=== PATIENT | male | born 1965 | race Two or more races ===

== ENCOUNTER 2022-11-11 20:49 | Inpatient (IN) | payer MEDICAID ==
[~2022-11-11] VITALS: Ht 157.5 cm; Wt 73.6 kg
[~2022-11-11 20:49] MED LIST: NORPTMEDS CO
[2022-11-11 21:31] LABS: Basophils # (auto) 0 10 ^3/uL (0-0.2); Eosinophils # (auto) 0.1 10 ^3/uL (0-0.8); Hemoglobin 13.5 g/dL (13.5-17.5); Mean Corpuscular Hgb Conc. 32.9 g/dL (32.0-36.0); Neutrophils # (auto) 2.9 10 ^3/uL (1.6-8.6); Red Cell Distribution Width 13.6 % (11.8-14.3)
[2022-11-11 21:33] LABS: Basophils % (auto) 0.5 % (0.0-2.0); Eosinophils % (auto) 2.6 % (0.0-7.0); Hematocrit 41.1 % (41.0-53.0); Lymphocytes # (auto) 1.3 10 ^3/uL (0.4-5.4); Lymphocytes % (auto) 27.4 % (10.0-50.0); Mean Corpuscular Hemoglobin 26.4 pg (28.0-32.0); Mean Corpuscular Volume 80.1 fL (80.0-100.0); Monocytes # (auto) 0.5 10 ^3/uL (0-1.3); Monocytes % (auto) 9.4 % (0.0-12.0); Neutrophils % (auto) 60.1 % (37.0-80.0); Nucleated Red Blood Cells % 0.1 %; Red Blood Cells 5.13 10^6/uL (4.5-5.90); White Blood Cell 4.9 10^3/uL (4.4-10.8)
[2022-11-11 21:51] LABS: Albumin 3.1 g/dL (3.4-5.0); Calcium 8.8 mg/dL (8.5-10.1); Potassium 4.4 mmol/L (3.5-5.1)
[2022-11-11 21:53] LABS: Bilirubin, Total 0.3 mg/dL (0.2-1.0); Total Protein 7.2 g/dL (6.4-8.2)
[2022-11-11] MEDS ORDERED: SODIUM CHLORIDE 0.9% 1,000 ML IV ONE (22:15)
[2022-11-11] MEDS ORDERED: InsuLIN REG 1unit/0.01ml Soln (100units/ml) SC ONE (22:15)
[2022-11-11] MEDS ORDERED: InsuLIN REG 1unit/0.01ml Soln (100units/ml) IV ONE (23:00)
[2022-11-11 23:16] LABS: BUN/Creatinine Ratio 18.6
[2022-11-12] MEDS ORDERED: SODIUM CHLORIDE 0.9% 1,000 ML IV ONE (01:00)
[2022-11-12] MEDS ORDERED: ONDANSETRON HCL 4 MG/2 ML VIAL IV PRN (02:15)
[2022-11-12] MEDS ORDERED: TEMAZEPAM 15 MG CAP PO PRN (02:15)
[2022-11-12] MEDS ORDERED: DEXTROSE (50%) 50ML SYRG IV PRN (02:15)
[2022-11-12 02:42] LABS: Urine WBC None Seen /hpf (0 - 3)
[2022-11-12 02:46] LABS: Urine Bacteria NONE SEEN /hpf (None Seen); Urine Blood Negative /uL (Negative); Urine Specific Gravity 1.032 (1.001-1.035)
[2022-11-12] MEDS: ACCU-CHEK COMFORT CURVE STRIP VI SCH ×4 (04:29→20:34)
[2022-11-12] MEDS: InsuLIN REG 1unit/0.01ml Soln (100units/ml) SC SCH ×5 (04:32→20:39)
[2022-11-12] MEDS ORDERED: LISINOPRIL 10 MG TAB PO ONE (06:15)
[2022-11-12 12:28] LABS: BUN/Creatinine Ratio 31.3; Potassium 4.3 mmol/L (3.5-5.1)
[2022-11-12] MEDS: PANTOPRAZOLE 40 MG TAB PO SCH (13:29)
[2022-11-12] MEDS ORDERED: BLOO1KIT60 XX (15:26)
[2022-11-12] MEDS ORDERED: METF-370 PO (15:26)
[2022-11-12] MEDS: metFORMIN HYDROCHLORIDE 850 MG TAB PO SCH (19:36)
[2022-11-12] MEDS: SODIUM CHLORIDE 0.9% 1,000 ML IV SCH (19:36)
[2022-11-12 22:00] VITALS: BP 135/82
[2022-11-13] MEDS: ACCU-CHEK COMFORT CURVE STRIP VI SCH ×4 (00:17→12:00)
[2022-11-13] MEDS: InsuLIN REG 1unit/0.01ml Soln (100units/ml) SC SCH ×4 (00:23→12:42)
[2022-11-13] MEDS: SODIUM CHLORIDE 0.9% 1,000 ML IV SCH ×2 (01:58→11:30)
[2022-11-13 05:00] VITALS: BP 121/68
[2022-11-13 05:46] LABS: Calcium 8.4 mg/dL (8.5-10.1); Potassium 3.3 mmol/L (3.5-5.1)
[2022-11-13 08:00] VITALS: BP 155/92
[2022-11-13] MEDS: metFORMIN HYDROCHLORIDE 850 MG TAB PO SCH (08:54)
[2022-11-13 09:03] VITALS: BP 127/76
[2022-11-13] MEDS ORDERED: POTASSIUM EFFERVESENT TAB 25 MEQ PO ONE (09:30)
[2022-11-13] MEDS ORDERED: LISINOPRIL 10 MG TAB PO SCH (10:00)
[2022-11-13] MEDS: PANTOPRAZOLE 40 MG TAB PO SCH (10:02)
[2022-11-13 13:01] VITALS: BP 145/88
[2022-11-13 13:40] VITALS: BP 127/76
== END 2022-11-13 16:23 | disposition home or self-care (01) | DRG 420 ==
LOC: ER 20:52 → OVERFLOW 11-12 02:10 → CENTRAL 11-12 20:02
PROVIDERS: ADMIT Nurse Practitioner; ATTEND Nurse Practitioner Acute Care
DX: E11.65 Type 2 diabetes mellitus with hyperglycemia (principal); E44.0 Moderate protein-calorie malnutrition; N17.9 Acute kidney failure, unspecified; E66.9 Obesity, unspecified; E86.0 Dehydration; I10 Essential (primary) hypertension; Z68.29 Body mass index [BMI] 29.0-29.9, adult; Z20.822 Contact with and (suspected) exposure to COVID-19
CPT/HCPCS: 36415; 36600; 80048; 80053; 81001; 82805; 82962; 83036; 83690; 83880; 84484; 85025; 87426; 96361; 96374; G0378; J1815

== ENCOUNTER 2023-10-22 20:37 | Emergency (ER) | payer MEDICAID ==
[~2023-10-22] VITALS: Ht 157.5 cm; Wt 75.0 kg
[~2023-10-22 20:37] MED LIST changes: +BLOO1KIT60 XX; +METF-370 PO
[2023-10-22 21:09] VITALS: BP 155/83; PULSE 79; RESP 20; O2SAT 98
[2023-10-22] MEDS: KETOROLAC TROMETH 60MG/2ML VIAL IM ONE (23:59)
== END 2023-10-23 00:40 | disposition home or self-care (01) ==
LOC: ER 20:37
DX: R51.9 Headache, unspecified (principal); I10 Essential (primary) hypertension; E11.9 Type 2 diabetes mellitus without complications; E78.5 Hyperlipidemia, unspecified; Z79.899 Other long term (current) drug therapy
CPT/HCPCS: 70450; 96372; 99285; J1885

== ENCOUNTER 2025-02-21 11:01 | Inpatient (IN) | payer MEDICAID, SELFPAY ==
[~2025-02-21] VITALS: Ht 157.5 cm; Wt 72.8 kg
--- NOTE | 2025-02-21 11:17 | ED.PDOC ---
HPI (NEURO) HPI Comments HPI: Poor Historian. 59-year-old male presents to emergency depart for evaluation of 45 minutes onset of dizziness while he was in the ladder with the associated right-sided weakness. Patient feels right facial right arm right leg weakness in addition to tingling as well. Denies any speech abnormality. Code stroke was activated immediately upon evaluation. Past Medical History: Diabetes Past Surgical History: Denies any Denies any use of drugs or alcohol or tobacco REVIEW OF SYSTEMS: CONSTITUTIONAL: Denies acute: fever, diaphoresis, chills, generalized weakness. HEAD: Denies acute: headache, photophobia Eyes: Denies acute: Double vision, vision loss, eye pain, eye discharge. EARS: Denies acute: tinnitus, hearing loss, ear discharge, ear pain, THROAT: Denies acute: sore throat, swelling, difficulty swallowing , pain with swallowing, change in voice. NECK: Denies acute: neck pain, neck swelling, stiff neck. HEART: Denies acute : chest pain, palpitations, LUNGS: Denies acute: SOB, wheezing, cough, hemoptysis ABDOMEN: Denies acute: abdominal pain, Nausea, Vomiting, diarrhea, melena , hematemesis, hematochezia SKIN: Denies acute: rash, redness, lesions, itchiness. EXTREMITIES: Denies acute: calf pain, denies pain in extremity. Denies acute: Low back pain. Neuro: Denies acute: focal neurological deficit, motor or sensory focal neurological deficit, tremors, seizure like activity, confusion, change in mental status, loss of bowel or bladder function, cauda equina like symptoms. : Denies acute: dysuria, hematuria, flank pain, increase in urinary frequency. PSYCH: Denies acute: hallucination, suicidal ideation, homicidal ideation. PHYSICAL EXAM: General: ----mild----acute distress, awake and alert. Head: normocephalic, atraumatic. Neck: supple, trachea is midline, no swelling. Throat: Normal phonation. Eyes:, no erythema, no purulent discharge, no proptosis, no icterus. Heart: regular rate, regular rhythm, no significant murmur appreciated. Lungs: no apparent respiratory distress, Able to speak in full sentences. No wheezing, no rhonchi, no crackles. No stridors Clear to auscultation bilaterally. Abdomen: non tender to palpation, non distended, soft, no guarding, no rebound, + bowel sounds. Neuro: Awake, Alert, oriented to name, self, situation, follows commands GCS=15. Speech is normal. Skin: no petechia, no purpura, no cyanosis, non-pale, not jaundice. Lower extremities: --no - Pitting edema no deformity, no focal swelling, no calf TTP. Makes eye contact. moves all four extremities. Face: no apparent facial droop. Ambulating in the ED independently. Stroke: finger to nose cerebellar testing is intact. No pronator drift. Symmetrical dry cleaning checker muscle strength b/l PERRLA, EOM-I CN 2-12 are grossly intact, No nystagmus. No nuchal rigidity, Kernig's sign, Brudzinski's sign, no meningeal signs. ED COURSE: DISCLAIMER: This medical document was created using an electronic medical record system with voice recognition software and computerized dictation system. Although this document has been carefully reviewed, there might still be some phonetic and typographical errors. Occasional wrong-word or "sound-alike" substitutions may have occurred due to the inherent limitations of voice recognition software. These areas are purely typographical due to imperfections of the software programs and do not reflect any compromise in the patient's medical care. Please read the chart carefully and recognize, using context, where these substitutions have occurred. Time Seen by MD: 11:12 Primary Care Provider: CHAUNCEY Information Source: Patient Past Medical History PAST MEDICAL HISTORY: DM, High Lipids, HTN Surgical History: Denies all surgeries Family History Family History: Reviewed,noncontributory to illness, Unknown Social History Smoker: Non-Smoker Alcohol: Denies ETOH Use Drugs: Denies Drug Use Lives In: Home X-Ray, Labs, Meds, VS Vital Signs Date Time Temp Pulse Resp B/P (MAP) Pulse Ox O2 Delivery O2 Flow Rate FiO2 02/21/25 11:45 84 21 93 Room Air* 0 21 02/21/25 11:45 84 21 141/74 (96) 93 02/21/25 11:22 98.6 102 16 161/100 (120) 96 98.6 Lab Test 02/21/25 11:21 02/21/25 11:14 Range/Units White Blood Count 4.7 4.4-10.8 10^3/uL Red Blood Count 5.19 4.5-5.90 10^6/uL Hemoglobin 13.5 13.5-17.5 g/dL Hematocrit 40.6 L 41.0-53.0 % Mean Corpuscular Volume 78.3 L 80.0-100.0 fL Mean Corpuscular Hemoglobin 25.9 L 28.0-32.0 pg Mean Corpuscular Hemoglobin Concent 33.1 32.0-36.0 g/dL Red Cell Distribution Width 14.6 H 11.8-14.3 % Platelet Count 263 140-450 10^3/uL Mean Platelet Volume 6.7 L 6.9-10.8 fL Neutrophils (%) (Auto) 64.1 37.0-80.0 % Lymphocytes (%) (Auto) 25.5 10.0-50.0 % Monocytes (%) (Auto) 8.4 0.0-12.0 % Eosinophils (%) (Auto) 1.7 0.0-7.0 % Basophils (%) (Auto) 0.3 0.0-2.0 % Neutrophils # (Auto) 3.0 1.6-8.6 10 ^3/uL Lymphocytes # (Auto) 1.2 0.4-5.4 10 ^3/uL Monocytes # (Auto) 0.4 0-1.3 10 ^3/uL Eosinophils # (Auto) 0.1 0-0.8 10 ^3/uL Basophils # (Auto) 0 0-0.2 10 ^3/uL Nucleated Red Blood Cells 0.0 % Prothrombin Time 10.3 9.3-11.8 sec Prothrombin Time INR 0.97 0.9-1.15 Activated Partial Thromboplast Time 26.3 24.5-34.5 SEC Sodium Level 144 136-145 mmol/L Potassium Level 4.2 3.5-5.1 mmol/L Chloride Level 109 H 98-107 mmol/L Carbon Dioxide Level 25 20-31 mmol/L Anion Gap 10 5-15 Blood Urea Nitrogen 20 9-23 mg/dL Creatinine 0.90 0.700-1.30 mg/dL Glomerular Filtration Rate Calc 99 >90 mL/min BUN/Creatinine Ratio 22.2 H 10.0-20.0 Serum Glucose 181 H 74-106 mg/dL Calcium Level 10.1 8.7-10.4 mg/dL Magnesium Level 2.1 1.6-2.6 mg/dL Total Bilirubin 0.5 0.2-1.0 mg/dL Aspartate Amino Transferase (AST) 18 <34 U/L Alanine Aminotransferase (ALT) 23 7-40 U/L Alkaline Phosphatase 69 46-116 U/L Troponin I High Sensitivity < 3 L </=54 ng/L B-Type Natriuretic Peptide 85.55 0-100 pg/mL Total Protein 7.4 5.7-8.2 g/dL Albumin 4.6 3.2-4.8 g/dL POC Glucose 174 H 70-106 mg/dl Current Medications Medications (Trade) Dose Ordered Sig/Molina Route Start Time Stop Time Status Last Admin Clopidogrel Bisulfate (Plavix) 300 mg ONCE ONCE PO 02/21/25 11:45 02/21/25 11:47 DC 02/21/25 12:09 Aspirin 81 mg ONCE ONCE PO 02/21/25 11:45 02/21/25 11:47 DC 02/21/25 12:09 [place] [address] Ph: [phone] DIAGNOSTIC IMAGING Diagnostic Imaging Report : [id number] Signed PATIENT: JO CALDERA ACCT: [id number] UNIT: [id number] : 1965 LOC: ER ROOM / BED: / AGE / SEX: 59 / M ADM STATUS: REG ER SERVICE 1113 ORDERING PHYSICIAN: ELBERT ALCAZAR DO PROCEDURE(s): [place] - ANGIO HEAD/Neck REASON: right sided weakness ORDER NUMBER(s): [id number], ACCESSION NUMBER(s): [id number] Procedure: CT ANGIO HEAD/Neck HISTORY: Right sided weakness Comparison Study: CT scan of the head performed same date. Exam Date:02/21/2025 11:21 AM TECHNIQUE: CTA head without and with intravenous contrast. CTA neck with intravenous contrast. 3D image postprocessing was performed and images were used for interpretation and reporting. Radiation Dose : CT Dose: CTDI volume is 22.41 mGy. Dose-length product is 849.71 mGy*cm FINDINGS: CTA head: There is normal enhancement of the visualized distal internal carotid, anterior and middle cerebral arteries. There is a normal anterior communicating artery complex. There are bilateral posterior communicating arteries. The vertebral, basilar, cerebellar and posterior cerebral arteries are within normal limits. The early parenchymal enhancement is grossly unremarkable. The visualized intracranial venous structures are grossly unremarkable. CTA neck: The visualized thoracic aortic arch and proximal great vessels are unremarkable. The left common, internal and external carotid arteries are within normal limits. The right common, internal and external carotid arteries are within normal limits. The cervical segments of the right and left vertebral arteries are within normal limits. 1.5 cm cavitary nodule in the right upper lobe. The surrounding soft tissues and osseous structures are otherwise unremarkable. IMPRESSION: 1. No evidence of hemodynamically significant intracranial stenosis, proximal o cclusion or aneurysm. 2. No evidence of hemodynamically significant cervical stenosis or dissection. 3. 1.5 cm cavitary pulmonary nodule in the right upper lobe. Dedicated chest CT is recommended for further evaluation. CAROTID STENOSIS REFERENCE Distal internal carotid artery diameter as the denominator for stenosis measurement: MILD = <50% stenosis. MODERATE = 50-69% stenosis. SEVERE = 70-89% stenosis. CRITICAL = 90-99% stenosis. OCCLUDED = 100% stenosis. All CT scans at this medical facility are performed using dose modulation techniques as appropriate to a performed exam including the following: Automated exposure control was utilized; adjustment of the MA and/or KV according to patient size; and use of iterative reconstruction technique. ATED BY: SHERINE GROSSMAN MD DICTATED DATE/TIME: 02/21/251200 SIGNED BY: SHERINE GROSSMAN MD SIGNED DATE/TIME: 02/21/251200 CC: [place] [address] Ph: [phone] DIAGNOSTIC IMAGING Diagnostic Imaging Report : [id number] Signed PATIENT: JO CALDERA ACCT: [id number] UNIT: [id number] : 1965 LOC: ER ROOM / BED: / AGE / SEX: 59 / M ADM STATUS: REG ER SERVICE 1113 ORDERING PHYSICIAN: ELBERT ALCAZAR DO PROCEDURE(s): CTH - STROKE CTH REASON: right sided weakness ORDER NUMBER(s): [id number], ACCESSION NUMBER(s): [id number] EXAM: CT STROKE CTH INDICATION: Right sided weakness TECHNIQUE: CT of the head without intravenous contrast. Coronal and sagittal reformatted images are submitted. Radiation Dose : 1. Head: CT Dose: CTDI volume is 53.38 mGy. Dose-length product is 855.83 mGy*cm The dose indicators for CT are the volume Computed Tomography (CT) Dose Index (CTDIvol) and the Dose Length Product (DLP), and are measured in units of mGy and mGy-cm, respectively. These indicators are not patient dose, but values generated from the CT scanner acquisition factors. The report includes radiation exposure data for exposures received during this examination. All CT scans at this medical facility are performed using dose modulation techniques as appropriate to a performed exam including the following: Automated exposure control was utilized; adjustment of the MA and/or KV according to patient size; and use of iterative reconstruction technique. COMPARISON: 10/22/2023 FINDINGS: There is no evidence of acute intracranial hemorrhage, extra-axial collection, mass effect, midline shift, herniation or hydrocephalus. The ventricles, sulci and cisterns are age appropriate. The march-white differentiation is intact. The visualized paranasal sinuses and mastoid air cells are clear. No depressed calvarial fracture. The surrounding soft tissues are unremarkable. IMPRESSION: 1. No evidence of acute intracranial abnormality. ATED BY: SHERINE GROSSMAN MD DICTATED DATE/TIME: 02/21/251154 SIGNED BY: SHERINE GROSSMAN MD SIGNED DATE/TIME: 02/21/251154 CC: [place] [address] Ph: [phone] DIAGNOSTIC IMAGING Diagnostic Imaging Report : [id number] Signed PATIENT: JO CALDERA ACCT: [id number] UNIT: [id number] : 1965 LOC: ER ROOM / BED: / AGE / SEX: 59 / M ADM STATUS: REG ER SERVICE 1113 ORDERING PHYSICIAN: ELBERT ALCAZAR DO PROCEDURE(s): CXR1 - CHEST XRAY 1 VIEW REASON: right sided weakness ORDER NUMBER(s): [id number], ACCESSION NUMBER(s): [id number] CHEST RADIOGRAPH Indication: right sided weakness Technique: Single frontal view of the chest was obtained COMPARISON: XY CHEST XRAY 1 VIEW on DOS: 11/11/22 FINDINGS: Lines and Tubes: None Lungs: Clear Pleura: No effusion. No pneumothorax. Cardiomediastinal contours: Unremarkable Bones: Unremarkable IMPRESSION: No acute disease. ATED BY: KURT MOODY MD DICTATED DATE/TIME: 02/21/25 1208 SIGNED BY: KURT MOODY MD SIGNED DATE/TIME: 02/21/25 1208 CC: Time of 1ST Reevaluation: 12:03 (Earlier case was discussed with the neurologist on-call Dr. choi. He evaluated the patient in the camera. He recommends TIA workup. He said that the patient's symptoms have completely resolved. He recommended aspirin 81 and Plavix 300 mg. Radiologist also called me and said the findings are all negative and everything is patent.) Reevaluation 1ST: Improved Patient Education/Counseling: Diagnosis, Treatment Family Education/Counseling: No Family Present Departure 1 Departure Time of Disposition: 11:28 Impression: Primary Impression: Right sided weakness Additional Impression: TIA (transient ischemic attack) Disposition: ADMITTED INPATIENT Admit to: Tele Condition: Guarded Discharged With: Self I personally scribed for ELBERT ALCAZAR DO ([email or web address]) on 02/21/25 at 12:19. Electronically submitted by Black Rodriguez ([email or web address]). ELBERT ALCAZAR DO Feb 21, 2025 11:17
[2025-02-21 11:44] LABS: Eosinophils # (auto) 0.1 10 ^3/uL (0-0.8); Lymphocytes # (auto) 1.2 10 ^3/uL (0.4-5.4); Monocytes # (auto) 0.4 10 ^3/uL (0-1.3)
[2025-02-21 11:45] VITALS: PULSE 84; RESP 21; O2SAT 93
[2025-02-21 11:46] LABS: Basophils # (auto) 0 10 ^3/uL (0-0.2); Basophils % (auto) 0.3 % (0.0-2.0); Eosinophils % (auto) 1.7 % (0.0-7.0); Hematocrit 40.6 % (41.0-53.0); Hemoglobin 13.5 g/dL (13.5-17.5); Lymphocytes % (auto) 25.5 % (10.0-50.0); Mean Corpuscular Hemoglobin 25.9 pg (28.0-32.0); Mean Corpuscular Hgb Conc. 33.1 g/dL (32.0-36.0); Mean Corpuscular Volume 78.3 fL (80.0-100.0); Monocytes % (auto) 8.4 % (0.0-12.0); Neutrophils % (auto) 64.1 % (37.0-80.0); Platelet Count (auto) 263 10^3/uL (140-450); Red Blood Cells 5.19 10^6/uL (4.5-5.90); Red Cell Distribution Width 14.6 % (11.8-14.3); White Blood Cell 4.7 10^3/uL (4.4-10.8)
[2025-02-21] MEDS: IOHEXOL 350 MG/ML 100ML IJ ONE (11:46)
--- NOTE | 2025-02-21 11:52 | BSKYNEURO ---
[facility] [facility] Note # Demographics Consult Type: Acute Stroke Level 1 (0-4.5 hrs) Patient Location: Emergency Room First Name: JO Last Name: CALDERA Date of : 1965 Age: 59 Gender: Male Facility: [facility] Time of Initial Page (): 02/21/2025 11:19 Time of Return Call (): 02/21/2025 11:19 # HPI Chief Complaint: - weakness (focal) - numbness History: 59-year-old male with a history of diabetes who presents with right-sided weakness, numbness, and tingling that began approximately 45 minutes prior to arrival at the emergency department. Interview completed with help of Language Line game author The patient reports that he was working on a ladder when he began to feel dizzy. He subsequently went down from the ladder and noticed weakness on his right side, affecting both his arm and leg. In addition to the weakness, he experienced numbness and tingling sensations. The patient also mentions feeling "off" while walking. The onset of symptoms was sudden, occurring around 10:30 AM on the day of presentation. Symptoms lasted for 30 minutes. Last Known Normal: - 10:30 AM Duration: - resolved # Scores Time of exam and NIHSS (): 02/21/2025 11:32 Level of Consciousness 1a: [0] = Alert; keenly responsive LOC Questions 1b: [0] = Answers both questions correctly LOC Commands 1c: [0] = Performs both tasks correctly Best Gaze 2: [0] = Normal Visual 3: [0] = No visual loss Facial Palsy 4: [0] = Normal symmetrical movements Motor Arm Left 5a: [0] = No drift Motor Arm Right 5b: [0] = No drift Motor Leg Left 6a: [0] = No drift Motor Leg Right 6b: [0] = No drift Limb Ataxia 7: [0] = Absent Sensory 8: [0] = Normal Best Language 9: [0] = No aphasia Dysarthria 10: [0] = Normal Extinction and Inattention 11: [0] = No abnormality NIHSS Total: 0 ABCD2 Score for TIA: [0] = Age >/= 60 years: No [1] = BP >/= 140/90: Yes [2] = Clinical features of the TIA: unilateral weakness [1] = Duration of symptoms: 10-59 minutes [1] = History of diabetes: Yes ABCD2 Total: 5 # ROS Additional: - complete review of systems otherwise negative # PMH-FH-SH Past Medical History: - hypertension - Diabetes # Data Time Head CT personally read by me (Pearce Time): 02/21/2025 11:[address]: - per radiologist read - no bleed CTA Head: - no large vessel occlusion - preliminarily reviewed by me, please refer to radiology read for official reading # Assessment Impression: - Transient Ischemic Attack - ABCD2 score: - Per AHA/ASA guidelines, patients with minor ischemic stroke NIHSS of 3 or less may benefit from 21 days of dual antiplatelet (based on POINT and CHANCE trials) # Plan Thrombolytic/Intervention: NOT IV Thrombolysis or IA Intervention candidate Thrombolytic Exclusion (< 3 hour window): - NIHSS = 0 Intraarterial Exclusion: - no large vessel occlusion (LVO) Target Blood Pressure: - SBP < 220 - DBP < 120 Labs: - hemoglobin A1c - lipid panel - urine drug screen - ua Imaging: (urgency: routine): - MRI Brain without contrast Diagnostic Test: - echo with bubble study Therapy/Evaluation: - Therapy not needed since patient is back to baseline Medication: - Recommend loading with Plavix 300 mg PO x 1 and ASA 81 mg PO x 1 now. Then Day 2 to 21, recommend Plavix 75 and ASA 81 mg daily. Then thereafter, can do ASA 81 mg daily or Plavix 75 mg daily. DVT Prophylaxis: - chemical DVT prophylaxis - SCD Other: - If patient has any neurological deterioration please call me back immediately - permissive hypertension - I have discussed my recommendations with the referring provider - telemetry monitoring - neurology referral as outpatient - will need event monitor or loop recorder as outpatient if atrial fibrillation not found as inpatient Disposition: admit # Demographics First Name: JO Last Name: [facility] Facility: [facility] Yes JOHAN NAGY MD Feb 21, 2025 11:52
--- NOTE | 2025-02-21 11:58 | DVH ---
EXAM: CT STROKE CTH INDICATION: Right sided weakness TECHNIQUE: CT of the head without intravenous contrast. Coronal and sagittal reformatted images are s ubmitted. Radiation Dose : 1. Head: CT Dose: CTDI volume is 53.38 mGy. Dose-length product is 855.83 mGy*cm The dose indicators for CT are the volume Computed Tomography (CT) Dose Index (CTDIvol) and the Dose Length Product (DLP), and are measured in units of mGy and mGy-cm, respectively. These indicators are not patient dose, but values generated from the CT scanner acquisition factors. The report includes radiation exposure data for exposures received during this examination. All CT scans at this medical facility are performed using dose modulation techniques as appropriate to a performed exam including the following: Automated exposure control was utilized; adjustment of the MA and/or KV according to patient size; and use of iterative reconstruction technique. COMPARISON: 10/22/2023 FINDINGS: There is no evidence of acute intracranial hemorrhage, extra-axial collection, mass effect, midline s hift, herniation or hydrocephalus. The ventricles, sulci and cisterns are age appropriate. The march-white differentiation is intact. The visualized paranasal sinuses and mastoid air cells are clear. No depressed calvarial fracture. The surrounding soft tissues are unremarkable. IMPRESSION: 1. No evidence of acute intracranial abnormality.
[2025-02-21 11:59] LABS: INR 0.97 (0.9-1.15); Partial Thromboplastin Time 26.3 SEC (24.5-34.5); Prothrombin Time 10.3 sec (9.3-11.8)
[2025-02-21 12:02] LABS: Alanine Aminotransferase 23 U/L (7-40); Albumin 4.6 g/dL (3.2-4.8); Alkaline Phosphatase 69 U/L (46-116); Anion Gap 10 (5-15); Aspartate Aminotransferase 18 U/L (<34); BUN/Creatinine Ratio 22.2 (10.0-20.0); Bilirubin, Total 0.5 mg/dL (0.2-1.0); Blood Urea Nitrogen 20 mg/dL (9-23); Calcium 10.1 mg/dL (8.7-10.4); Carbon Dioxide 25 mmol/L (20-31); Chloride 109 mmol/L (98-107); Glucose 181 mg/dL (74-106); Potassium 4.2 mmol/L (3.5-5.1); Sodium 144 mmol/L (136-145); Total Protein 7.4 g/dL (5.7-8.2)
--- NOTE | 2025-02-21 12:03 | DVH ---
Procedure: CT ANGIO HEAD/Neck HISTORY: Right sided weakness Comparison Study: CT scan of the head performed same date. Exam Date:02/21/2025 11:21 AM TECHNIQUE: CTA head without and with intravenous contrast. CTA neck with intravenous contrast. 3D [place] Frodio postprocessing was performed and images were used for interpretation and reporting. Radiation Dose : CT Dose: CTDI volume is 22.41 mGy. Dose-length product is 849.71 mGy*cm FINDINGS: CTA head: There is normal enhancement of the visualized distal internal carotid, anterior and middle cerebral a rteries. There is a normal anterior communicating artery complex. There are bilateral posterior commu nicating arteries. The vertebral, basilar, cerebellar and posterior cerebral arteries are within norm al limits. The early parenchymal enhancement is grossly unremarkable. The visualized intracranial bacilio ous structures are grossly unremarkable. CTA neck: The visualized thoracic aortic arch and proximal great vessels are unremarkable. The left common, int ernal and external carotid arteries are within normal limits. The right common, internal and external carotid arteries are within normal limits. The cervical segments of the right and left vertebral art eries are within normal limits. 1.5 cm cavitary nodule in the right upper lobe. The surrounding soft tissues and osseous structures are otherwise unremarkable. IMPRESSION: 1. No evidence of hemodynamically significant intracranial stenosis, proximal occlusion or aneurysm. 2. No evidence of hemodynamically significant cervical stenosis or dissection. 3. 1.5 cm cavitary pulmonary nodule in the right upper lobe. Dedicated chest CT is recommended for fu rther evaluation. CAROTID STENOSIS REFERENCE Distal internal carotid artery diameter as the denominator for stenosis measurement: MILD = <50% stenosis. MODERATE = 50-69% stenosis. SEVERE = 70-89% stenosis. CRITICAL = 90-99% stenosis. OCCLUDED = 100% stenosis. All CT scans at this medical facility are performed using dose modulation techniques as appropriate t o a performed exam including the following: Automated exposure control was utilized; adjustment of th e MA and/or KV according to patient size; and use of iterative reconstruction technique.
[2025-02-21] MEDS: CLOPIDOGREL BISULFATE 75 MG TAB PO ONE (12:09)
[2025-02-21] MEDS: ASPirin 81 mg TAB PO ONE (12:09)
--- NOTE | 2025-02-21 12:11 | DVH ---
CHEST RADIOGRAPH Indication: right sided weakness Technique: Single frontal view of the chest was obtained COMPARISON: XY CHEST XRAY 1 VIEW on DOS: 11/11/22 FINDINGS: Lines and Tubes: None Lungs: Clear Pleura: No effusion. No pneumothorax. Cardiomediastinal contours: Unremarkable Bones: Unremarkable IMPRESSION: No acute disease.
[2025-02-21 12:14] LABS: Magnesium 2.1 mg/dL (1.6-2.6)
[2025-02-21 12:46] LABS: Urine Bacteria None Seen /hpf (None Seen)
[2025-02-21 12:59] LABS: Urine Blood Negative /uL (Negative); Urine Budding Yeast OCCASIONAL /hpf (None Seen); Urine Clarity Clear (Clear); Urine Color Light-Yellow (Yellow); Urine Mucus FEW (None Seen); Urine Protein, UAD 1+ (Negative); Urine Squamous Epithelial Cell FEW /hpf (<5); Urine Urobilinogen Normal (Negative); Urine pH 6.5 (5.0-9.0)
[2025-02-21 13:05] LABS: Urine WBC < 1 /HPF (0-3)
[2025-02-21] MEDS ORDERED: ONDANSETRON HCL 4 MG/2 ML VIAL IV PRN (14:00)
[2025-02-21] MEDS ORDERED: DOCUSATE SOD 100 MG CAP PO PRN (14:00)
[2025-02-21] MEDS ORDERED: HYDROcodone-ACET 5/325MG TAB PO PRN (14:00)
[2025-02-21] MEDS ORDERED: ACETAMINOPHEN 325 MG TAB PO PRN (14:00)
[2025-02-21] MEDS ORDERED: DEXTROSE (50%) 50ML SYRG IV PRN (14:00)
[2025-02-21] MEDS: SODIUM CHLOR 0.9% PF (SALINE LOCK) 10ML VIAL/SYR IV SCH (14:07)
--- NOTE | 2025-02-21 14:33 | DVHHP2 ---
History of Present Illness Reason for Visit: Right sided weakness History of Present Illness The patient is a 59-year-old male with past medical history of diabetes mellitus, hyperlipidemia, and hypertension who presented to [facility] ED with complaint of right-sided weakness. Patient reports he has been experiencing dizziness, feels right facial, right arm, right leg weakness as well as tingling. Patient was seen and evaluated in the ED, laboratory data shows WBC 4.7, platelets 263, sodium 144, potassium 4.2, BUN 20, creatinine 0.90, glucose 101, calcium 10.1, BNP 85.55, troponin < 3, blood pressure 141/74, heart rate 82, temperature 98.6 F, O2 saturation 93% on oxygen. Head CT showed no evidence of acute intracranial abnormality. Neurology will follow the patient, please see medication orders section in the computer. On my assessment, patient denied chest pain, no headache, no dizziness, no lightheadedness, no blurry vision, no shortness of breath, no diaphoresis, no nausea, no vomiting, no fever, no chills. Patient was admitted for further evaluation and medical management. Past Medical History DM, High Lipids, HTN Past Surgical History Denies all surgeries Family History Reviewed, noncontributory to the management of this case. Past Social History The patient lives at home, denies smoking, alcohol or illicit drugs abuse. Review of Systems Constitutional: Yes: Weakness; No: Fever, Chills, Sweats, Malaise, Other Eyes: No: Pain, Vision change, Conjunctivae inflammation, Eyelid inflammation, Other, Redness ENT: No: Ear pain, Ear discharge, Nose pain, Nose discharge, Nose congestion, Mouth pain, Mouth swelling, Throat pain, Throat swelling, Other Respiratory: No: Cough, Dry, Shortness of breath, SOB with excertion, Wheezing, Hemoptysis, Pleuritic Pain, Sputum, Wheezing, Other Cardiovascular: No: Chest Pain, Palpitations, Orthopnea, Paroxysmal Noc. Dyspnea, Edema, Lt Headedness, Other Gastrointestinal: No: Nausea, Vomiting, Abdominal Pain, Diarrhea, Constipation, Melena, Hematochezia, Other Genitourinary: No Dysuria, No Frequency, No Incontinence, No Hematuria, No Retention, No Other Musculoskeletal: No: other, neck pain, shoulder pain, arm pain, back pain, hand pain, leg pain, foot pain Skin: No: Rash, Lesions, Jaundice, Bruising, Other Neurological: Weakness (Right-sided), Other (Right-sided tingling); No: Numbness, Incoordination, Change in speech, Confusion, Seizures Allergies: Coded Allergies: NO KNOWN ALLERGIES (Unverified , 10/13/13) Medications Current Medications Medications Dose Ordered Sig/Molina Route Start Time Stop Time Status Last Admin Dose Admin Aspirin 81 mg DAILY PO 02/22/25 10:00 Atorvastatin Calcium 20 mg HS PO 02/21/25 22:00 Hydralazine HCl 10 mg Q6HP PRN IV 02/21/25 14:00 Metoprolol Tartrate 25 mg BID PO 02/21/25 22:00 Diagnostic Test (Pha) 1 strip ACHS 02/21/25 17:00 Insulin Human Regular ACHS SC 02/21/25 17:00 Dextrose 50 ml UD PRN IV 02/21/25 14:00 Sodium Chloride 10 ml Q8HR IV 02/21/25 14:00 02/21/25 14:07 10 ML Acetaminophen/ Hydrocodone Bitart 1 tab Q4HP PRN PO 02/21/25 14:00 Ondansetron HCl 4 mg Q4HP PRN IV 02/21/25 14:00 Docusate Sodium 100 mg BIDPRN PRN PO 02/21/25 14:00 Acetaminophen 650 mg Q6HP PRN PO 02/21/25 14:00 Exam Vital Signs Vital Signs Date Time Temp Pulse Resp B/P (MAP) Pulse Ox O2 Delivery O2 Flow Rate FiO2 02/21/25 14:00 78 20 152/80 (104) 94 02/21/25 11:45 Room Air* 0 21 02/21/25 11:22 98.6 98.6 General Appearance: Alert, Oriented X3, Cooperative, No acute distress HEENT: Atraumatic, PERRLA, EOMI, Mucous membr. moist/pink Respiratory: Clear to auscultation, Normal air movement Cardiovascular: Regular rate, Normal S1, Normal S2, No murmurs Abdominal: Normal bowel sounds, Soft, No tenderness, No hepatospenomegaly, No masses Extremities: No clubbing, No cyanosis, No edema, Normal pulses, No tenderness/swelling Skin: No rashes, No breakdown, No significant lesion Neuro: Normal speech, Normal tone, Sensation intact, Reflexes 2+, Other (Generalized weakness) Psych/Mental Status: Mental status NL, Mood NL Labs/Xrays Labs Test 02/21/25 12:46 02/21/25 12:42 02/21/25 11:21 02/21/25 11:14 Range/Units Urine Color Light-yellow Yellow Urine Clarity Clear Clear Urine pH 6.5 5.0-9.0 Urine Specific [place] 1.030 1.001-1.035 Urine Protein 1+ H Negative Urine Ketones Negative Negative Urine Blood Negative Negative /uL Urine Nitrite Negative Negative Urine Bilirubin Negative Negative Urine Urobilinogen Normal Negative mg/dL Urine Leukocyte Esterase Negative Negative /uL Urine RBC 4 0 - 3 /hpf Urine Microscopic WBC < 1 0-3 /HPF Urine Squamous Epithelial Cells Few <5 /hpf Urine Bacteria None seen None Seen /hpf Urine Mucus Few None Seen Urine Yeast (Budding) Occasional None Seen /hpf Urine Glucose 1+ H Normal mg/dL Troponin I High Sensitivity < 3 L </=54 ng/L White Blood Count 4.7 4.4-10.8 10^3/uL Red Blood Count 5.19 4.5-5.90 10^6/uL Hemoglobin 13.5 13.5-17.5 g/dL Hematocrit 40.6 L 41.0-53.0 % Mean Corpuscular Volume 78.3 L 80.0-100.0 fL Mean Corpuscular Hemoglobin 25.9 L 28.0-32.0 pg Mean Corpuscular Hemoglobin Concent 33.1 32.0-36.0 g/dL Red Cell Distribution Width 14.6 H 11.8-14.3 % Platelet Count 263 140-450 10^3/uL Mean Platelet Volume 6.7 L 6.9-10.8 fL Neutrophils (%) (Auto) 64.1 37.0-80.0 % Lymphocytes (%) (Auto) 25.5 10.0-50.0 % Monocytes (%) (Auto) 8.4 0.0-12.0 % Eosinophils (%) (Auto) 1.7 0.0-7.0 % Basophils (%) (Auto) 0.3 0.0-2.0 % Neutrophils # (Auto) 3.0 1.6-8.6 10 ^3/uL Lymphocytes # (Auto) 1.2 0.4-5.4 10 ^3/uL Monocytes # (Auto) 0.4 0-1.3 10 ^3/uL Eosinophils # (Auto) 0.1 0-0.8 10 ^3/uL Basophils # (Auto) 0 0-0.2 10 ^3/uL Nucleated Red Blood Cells 0.0 % Prothrombin Time 10.3 9.3-11.8 sec Prothrombin Time INR 0.97 0.9-1.15 Activated Partial Thromboplast Time 26.3 24.5-34.5 SEC Sodium Level 144 136-145 mmol/L Potassium Level 4.2 3.5-5.1 mmol/L Chloride Level 109 H 98-107 mmol/L Carbon Dioxide Level 25 20-31 mmol/L Anion Gap 10 5-15 Blood Urea Nitrogen 20 9-23 mg/dL Creatinine 0.90 0.700-1.30 mg/dL Glomerular Filtration Rate Calc 99 >90 mL/min BUN/Creatinine Ratio 22.2 H 10.0-20.0 Serum Glucose 181 H 74-106 mg/dL Calcium Level 10.1 8.7-10.4 mg/dL Magnesium Level 2.1 1.6-2.6 mg/dL Total Bilirubin 0.5 0.2-1.0 mg/dL Aspartate Amino Transferase (AST) 18 <34 U/L Alanine Aminotransferase (ALT) 23 7-40 U/L Alkaline Phosphatase 69 46-116 U/L B-Type Natriuretic Peptide 85.55 0-100 pg/mL Total Protein 7.4 5.7-8.2 g/dL Albumin 4.6 3.2-4.8 g/dL POC Glucose 174 H 70-106 mg/dl PATIENT: JO CALDERAACCT: [id number] UNIT: [id number] : 1965 LOC: ER ROOM / BED: / AGE / SEX: 59 / M ADM STATUS: REG ER SERVICE 1113 ORDERING PHYSICIAN: ELBERT ALCAZAR DO PROCEDURE(s): CTH - STROKE CTH REASON: right sided weakness ORDER NUMBER(s): [id number], ACCESSION NUMBER(s): [id number] ADDENDUM # 1 Critical result: Stroke alert Findings discussed with Dr. Alcazar on 02/21/2025 at 2:00 p.m. BINDERY CHIEF, with acknowledged receipt and understanding of the findings. ORIGINAL REPORT EXAM: CT STROKE CTH INDICATION: Right sided weakness TECHNIQUE: CT of the head without intravenous contrast. Coronal and sagittal reformatted images are submitted. Radiation Dose : 1. Head: CT Dose: CTDI volume is 53.38 mGy. Dose-length product is 855.83 mGy*cm The dose indicators for CT are the volume Computed Tomography (CT) Dose Index (CTDIvol) and the Dose Length Product (DLP), and are measured in units of mGy and mGy-cm, respectively. These indicators are not patient dose, but values generated from the CT scanner acquisition factors. The report includes radiation exposure data for exposures received during this examination. All CT scans at this medical facility are performed using dose modulation techniques as appropriate to a performed exam including the following: Automated exposure control was utilized; adjustment of the MA and/or KV according to patient size; and use of iterative reconstruction technique. COMPARISON: 10/22/2023 FINDINGS: There is no evidence of acute intracranial hemorrhage, extra-axial collection, mass effect, midline shift, herniation or hydrocephalus. The ventricles, sulci and cisterns are age appropriate. The march-white differentiation is intact. The visualized paranasal sinuses and mastoid air cells are clear. No depressed calvarial fracture. The surrounding soft tissues are unremarkable. IMPRESSION: 1. No evidence of acute intracranial abnormality. ORDERING PHYSICIAN: ELBERT ALCAZAR DO PROCEDURE(s): [place] - ANGIO HEAD/Neck REASON: right sided weakness ORDER NUMBER(s): [id number], ACCESSION NUMBER(s): [id number] ADDENDUM # 1 Critical result: Stroke alert Findings discussed with Dr. Alcazar on 02/21/2025 at 2:00 p.m. BINDERY CHIEF, with acknowledged receipt and understanding of the findings. ORIGINAL REPORT Procedure: CT ANGIO HEAD/Neck HISTORY: Right sided weakness Comparison Study: CT scan of the head performed same date. Exam Date:02/21/2025 11:21 AM TECHNIQUE: CTA head without and with intravenous contrast. CTA neck with intravenous contrast. 3D image postprocessing was performed and images were used for interpretation and reporting. Radiation Dose : CT Dose: CTDI volume is 22.41 mGy. Dose-length product is 849.71 mGy*cm FINDINGS: CTA head: There is normal enhancement of the visualized distal internal carotid, anterior and middle cerebral arteries. There is a normal anterior communicating artery complex. There are bilateral posterior communicating arteries. The vertebral, basilar, cerebellar and posterior cerebral arteries are within normal limits. The early parenchymal enhancement is grossly unremarkable. The visualized intracranial venous structures are grossly unremarkable. CTA neck: The visualized thoracic aortic arch and proximal great vessels are unremarkable. The left common, internal and external carotid arteries are within normal limits. The right common, internal and external carotid arteries are within normal limits. The cervical segments of the right and left vertebral arteries are within normal limits. 1.5 cm cavitary nodule in the right upper lobe. The surrounding soft tissues and osseous structures are otherwise unremarkable. IMPRESSION: 1. No evidence of hemodynamically significant intracranial stenosis, proximal occlusion or aneurysm. 2. No evidence of hemodynamically significant cervical stenosis or dissection. 3. 1.5 cm cavitary pulmonary nodule in the right upper lobe. Dedicated chest CT is recommended for further evaluation. CAROTID STENOSIS REFERENCE Distal internal carotid artery diameter as the denominator for stenosis measur ement: MILD = <50% stenosis. MODERATE = 50-69% stenosis. SEVERE = 70-89% stenosis. CRITICAL = 90-99% stenosis. OCCLUDED = 100% stenosis. All CT scans at this medical facility are performed using dose modulation techniques as appropriate to a performed exam including the following: Automated exposure control was utilized; adjustment of the MA and/or KV according to patient size; and use of iterative reconstruction technique. ORDERING PHYSICIAN: ELBERT ALCAZAR DO PROCEDURE(s): CXR1 - CHEST XRAY 1 VIEW REASON: right sided weakness ORDER NUMBER(s): [id number], ACCESSION NUMBER(s): [id number] CHEST RADIOGRAPH Indication: right sided weakness Technique: Single frontal view of the chest was obtained COMPARISON: XY CHEST XRAY 1 VIEW on DOS: 11/11/22 FINDINGS: Lines and Tubes: None Lungs: Clear Pleura: No effusion. No pneumothorax. Cardiomediastinal contours: Unremarkable Bones: Unremarkable IMPRESSION: No acute disease. Assessment/Plan Assessment/Plan Right sided weakness TIA (transient ischemic attack) Plan 1. Admit to telemetry unit 2. Breathing treatment 3. Pain control management 4. Management of fluids and electrolytes 5. Consultation for Neurology 6. Diagnostic tests head CT 7. DVT prophylaxis on aspirin 8. Repeat labs CBC, CMP in a.m. 9. Continue with current medical management 10. Treatment plan discussed with patient and RN. Patient verbalized understanding. Plan discussed with: Patient, Other (RN) My Orders Orders - MATILDE ELIZABETH DNP Procedure Category Date Status Time Aspirin Tablet PHA 02/22/25 In Process 10:00 Atorvastatin (Lipitor) PHA 02/21/25 In Process 22:00 Consistent DIET 02/21/25 Transmitted Carb(Ccho)Diabetes Dinner Hydralazine Injection PHA 02/21/25 In Process (Apresoline Inject 14:00 Metoprolol Tartrate PHA 02/21/25 In Process Tablet (Lopressor Ta 22:00 Glucose Blood PHA 02/21/25 In Process (Accu-Chek Comfort 17:00 Insulin R (Human) PHA 02/21/25 In Process (Insulin R) 17:00 Dextrose 50% Syringe PHA 02/21/25 In Process 14:00 Allergies CM 02/21/25 In Process 13:57 Code Status CODE 02/21/25 Transmitted 13:57 Sodium Chloride Lock PHA 02/21/25 In Process (Saline Lock Ns) 14:00 Oxygen Per Hour RT 02/21/25 Transmitted 13:57 Hydrocodone-Acet PHA 02/21/25 In Process 5/325mg Tab ([place] 14:00 Ondansetron Hcl PHA 02/21/25 In Process (Zofran) 14:00 Docusate Sodium PHA 02/21/25 In Process Capsule (Colace 14:00 Fall Risk Precautions CM 02/21/[address] 13:57 Complete Blood Count LAB 02/22/25 Verified 04:00 Comprehensive LAB 02/22/25 Verified Metabolic Panel 04:00 Cardiac DIET 02/21/25 Transmitted Diet-2gna,Lofat,Lochol Dinner Condition: Serious CM 02/21/25 In Process 13:57 Acetaminophen Tablet PHA 02/21/25 In Process (Tylenol Tablet) 14:00 Maintain Bed Rest CM 02/21/25 In Process 13:57 Sequential CM 02/21/25 In Process Compression Device Problem List: (1) Right sided weakness (2) TIA (transient ischemic attack) Date of Service: Feb 21, 2025 Billing Provider: MATILDE ELIZABETH DNP Common Visit Codes: [id number] INP/OBS CARE (HIGH) MATILDE ELIZABETH DNP Feb 21, 2025 14:33
[2025-02-21] MEDS ORDERED: MORPHINE SULFATE INJ 2 MG/ml SYRG IV PRN (14:45)
[2025-02-21] MEDS ORDERED: NITROGLYCERIN 0.4 MG SL TAB SL PRN (14:45)
[2025-02-21] MEDS: InsuLIN REG 1unit/0.01ml Soln (100units/ml) SC SCH (17:00)
[2025-02-21] MEDS: ACCU-CHEK COMFORT CURVE STRIP VI SCH (17:28)
[2025-02-21 18:33] VITALS: BP 158/87; PULSE 79; RESP 18; TEMP 98.5; O2SAT 98
[2025-02-21] MEDS: hydrALAZINE HCL 20 MG/ML VL IV PRN (19:02)
[2025-02-21 20:00] VITALS: PULSE 82
[2025-02-21 21:00] VITALS: BP 147/78; PULSE 84; RESP 18; TEMP 97.8; O2SAT 96
[2025-02-21] MEDS: ATORVASTATIN 20 MG TAB PO SCH (21:03)
[2025-02-21] MEDS: METOPROLOL TARTRATE 25 MG TAB PO SCH (21:03)
[2025-02-22] VITALS (8 sets, daily range): BP systolic 126–145; BP diastolic 68–79; PULSE 67–82; RESP 16–19; TEMP 97.9–98.1; O2SAT 94–97
[2025-02-22 07:11] LABS: Basophils # (auto) 0.1 10 ^3/uL (0-0.2); Basophils % (auto) 1.2 % (0.0-2.0); Eosinophils # (auto) 0.1 10 ^3/uL (0-0.8); Eosinophils % (auto) 2.5 % (0.0-7.0); Hematocrit 39.4 % (41.0-53.0); Hemoglobin 13.3 g/dL (13.5-17.5); Lymphocytes # (auto) 1.1 10 ^3/uL (0.4-5.4); Lymphocytes % (auto) 23.9 % (10.0-50.0); Mean Corpuscular Hemoglobin 26.3 pg (28.0-32.0); Mean Corpuscular Hgb Conc. 33.7 g/dL (32.0-36.0); Mean Corpuscular Volume 77.8 fL (80.0-100.0); Monocytes # (auto) 0.4 10 ^3/uL (0-1.3); Neutrophils # (auto) 2.9 10 ^3/uL (1.6-8.6); Neutrophils % (auto) 63.4 % (37.0-80.0); Platelet Count (auto) 267 10^3/uL (140-450); Red Blood Cells 5.06 10^6/uL (4.5-5.90); Red Cell Distribution Width 14.6 % (11.8-14.3); White Blood Cell 4.6 10^3/uL (4.4-10.8)
[2025-02-22 07:36] LABS: Alanine Aminotransferase 19 U/L (7-40); Alkaline Phosphatase 56 U/L (46-116); Anion Gap 10 (5-15); Blood Urea Nitrogen 13 mg/dL (9-23); Calcium 9.9 mg/dL (8.7-10.4); Carbon Dioxide 27 mmol/L (20-31); Sodium 144 mmol/L (136-145); Total Protein 6.9 g/dL (5.7-8.2)
[2025-02-22 07:37] LABS: Albumin 4.2 g/dL (3.2-4.8); Aspartate Aminotransferase 14 U/L (<34)
[2025-02-22 07:38] LABS: Bilirubin, Total 0.9 mg/dL (0.2-1.0)
[2025-02-22 07:40] LABS: Chloride 107 mmol/L (98-107); Glucose 117 mg/dL (74-106)
[2025-02-22] MEDS: ASPirin 81 mg TAB PO SCH (10:28)
--- NOTE | 2025-02-22 11:24 | DVH ---
PROCEDURE: MRI BRAIN HEAD WO CONTRAST INDICATION: R/O stroke EXAM DATE: 02/22/2025 10:46 AM COMPARISON: None TECHNIQUE: MRI of the brain without intravenous contrast. FINDINGS: Diffusion weighted images of the brain demonstrate no evidence of acute infarction. There is no evidence of acute intracranial hemorrhage, extra-axial collection, mass effect, midline s hift, herniation or hydrocephalus. The ventricles, sulci and cisterns appear age appropriate. Few punctate T2 bright foci in the deep white matter. There are no signal abnormalities on the susceptibility weighted sequences. The major vascular flow voids are present. The visualized paranasal sinuses and mastoid air cells are clear. The surrounding soft tissues and o sseous structures are unremarkable. IMPRESSION: 1. No evidence of acute infarction, intracranial hemorrhage, mass effect or hydrocephalus. Few puncta te T2 bright foci in the deep white matter which are nonspecific but could be related to chronic micr ovascular ischemic disease. HS:Y
--- NOTE | 2025-02-22 16:27 | DVHPN2 ---
Subjective weakness has resolved Reviewed: H&P, Labs Changes from previous H/P or p: No Changes Eyes: No Pain, No Vision change, No Conjunctivae inflammation, No Eyelid inflammation, No Other, No Redness ENT: No Ear pain, No Ear discharge, No Nose pain, No Nose discharge, No Nose congestion, No Mouth pain, No Mouth swelling, No Throat pain, No Throat swelling, No Other Cardiovascular: No Chest Pain, No Palpitations, No Orthopnea, No Paroxysmal Noc. Dyspnea, No Edema, No Lt Headedness, No Other Respiratory: No Cough, No Dry, No Shortness of breath, No SOB with excertion, No Wheezing, No Hemoptysis, No Pleuritic Pain, No Sputum, No Other Gastrointestinal: No Nausea, No Vomiting, No Abdominal Pain, No Diarrhea, No Constipation, No Melena, No Hematochezia, No Other Genitourinary: No Dysuria, No Frequency, No Incontinence, No Hematuria, No Retention, No Other Musculoskeletal: No other, No neck pain, No shoulder pain, No arm pain, No back pain, No hand pain, No leg pain, No foot pain Skin: No Rash, No Lesions, No Jaundice, No Bruising, No Other Objective Vitals Vital Signs Date Time Temp Pulse Resp B/P (MAP) Pulse Ox O2 Delivery O2 Flow Rate FiO2 02/22/25 13:16 98.0 71 18 145/74 (97) 96 98.0 02/22/25 08:00 Room Air* 0 21 Intake/Output Intake and Output 02/22/25 07:00 Intake Total 400 ml Balance 400 ml Intake Oral 400 ml # Voids 3 General Appearance: Alert, Oriented X3 HEENT: Atraumatic Cardiovascular: Regular rate, Normal S1, Normal S2 Abdomen: Normal bowel sounds Medications Current Medications Medications Dose Ordered Sig/Molina Route Start Time Stop Time Status Last Admin Dose Admin Aspirin 81 mg DAILY PO 02/22/25 10:00 02/22/25 10:28 81 MG Atorvastatin Calcium 20 mg HS PO 02/21/25 22:00 02/21/25 21:03 20 MG Hydralazine HCl 10 mg Q6HP PRN IV 02/21/25 14:00 02/21/25 19:02 10 MG Metoprolol Tartrate 25 mg BID PO 02/21/25 22:00 02/22/25 10:29 25 MG Diagnostic Test (Pha) 1 strip ACHS 02/21/25 17:00 02/22/25 11:30 1 STRIP Insulin Human Regular ACHS SC 02/21/25 17:00 02/22/25 11:30 2 UNITS Dextrose 50 ml UD PRN IV 02/21/25 14:00 Sodium Chloride 10 ml Q8HR IV 02/21/25 14:00 02/22/25 06:23 10 ML Acetaminophen/ Hydrocodone Bitart 1 tab Q4HP PRN PO 02/21/25 14:00 Ondansetron HCl 4 mg Q4HP PRN IV 02/21/25 14:00 Docusate Sodium 100 mg BIDPRN PRN PO 02/21/25 14:00 Acetaminophen 650 mg Q6HP PRN PO 02/21/25 14:00 Nitroglycerin 0.4 mg Q5MINP PRN SL 02/21/25 14:45 Morphine Sulfate 2 mg Q30M PRN IV 02/21/25 14:45 Laboratory Results Laboratory Tests 02/22/25 06:44 Chemistry Test 02/22/25 06:44 Albumin 4.2 g/dL (3.2-4.8) Calcium Level 9.9 mg/dL (8.7-10.4) Total Protein 6.9 g/dL (5.7-8.2) LFT Test 02/22/25 06:44 Alanine Aminotransferase (ALT) 19 U/L (7-40) Alkaline Phosphatase 56 U/L (46-116) Aspartate Amino Transferase (AST) 14 U/L (<34) Total Bilirubin 0.9 mg/dL (0.2-1.0) Urinalysis Test 02/21/25 12:46 Urine Color Light-yellow (Yellow) Urine Clarity Clear (Clear) Urine pH 6.5 (5.0-9.0) Urine Specific [place] 1.030 (1.001-1.035) Urine Protein 1+ (Negative) H Urine Ketones Negative (Negative) Urine Blood Negative /uL (Negative) Urine Nitrite Negative (Negative) Urine Bilirubin Negative (Negative) Urine Urobilinogen Normal mg/dL (Negative) Urine Leukocyte Esterase Negative /uL (Negative) Urine RBC 4 /hpf (0 - 3) Urine Microscopic WBC < 1 /HPF (0-3) Urine Squamous Epithelial Cells Few /hpf (<5) Urine Bacteria None seen /hpf (None Seen) Urine Mucus Few (None Seen) Urine Yeast (Budding) Occasional /hpf (None Urine Glucose 1+ mg/dL (Normal) H Assessment/Plan Assessment/Plan Right sided weakness TIA (transient ischemic attack) HTN uncontrolled MRI brain continue aspirin, statin, metoprolol Dispo: DC tomorrow if MRI obtained and BP better Plan discussed with: Patient My Orders Orders - ANGELA HARRIS MD Procedure Category Date Status Time Brain Head Wo Contrast MRI 02/22/25 Resulted 10:24 Date of Service: Feb 22, 2025 Billing Provider: ANGELA HARRIS MD Common Visit Codes: [id number] INP/OBS CARE(HIGH) ANGELA HARRIS MD Feb 22, 2025 16:27
[2025-02-23 01:00] VITALS: BP 132/73; PULSE 68; RESP 19; TEMP 97; O2SAT 95
[2025-02-23 05:00] VITALS: BP 125/70; PULSE 70; RESP 18; TEMP 97.8; O2SAT 94
[2025-02-23 08:00] VITALS: PULSE 70
[2025-02-23 09:25] VITALS: BP 114/75; PULSE 72; RESP 16; TEMP 98.5; O2SAT 94
--- NOTE | 2025-02-23 11:49 | DVHPN2 ---
Reviewed: H&P, Labs Eyes: No Pain, No Vision change, No Conjunctivae inflammation, No Eyelid inflammation, No Other, No Redness ENT: No Ear pain, No Ear discharge, No Nose pain, No Nose discharge, No Nose congestion, No Mouth pain, No Mouth swelling, No Throat pain, No Throat swelling, No Other Cardiovascular: No Chest Pain, No Palpitations, No Orthopnea, No Paroxysmal Noc. Dyspnea, No Edema, No Lt Headedness, No Other Respiratory: No Cough, No Dry, No Shortness of breath, No SOB with excertion, No Wheezing, No Hemoptysis, No Pleuritic Pain, No Sputum, No Other Gastrointestinal: No Nausea, No Vomiting, No Abdominal Pain, No Diarrhea, No Constipation, No Melena, No Hematochezia, No Other Genitourinary: No Dysuria, No Frequency, No Incontinence, No Hematuria, No Retention, No Other Musculoskeletal: No other, No neck pain, No shoulder pain, No arm pain, No back pain, No hand pain, No leg pain, No foot pain Skin: No Rash, No Lesions, No Jaundice, No Bruising, No Other Objective Vitals Vital Signs Date Time Temp Pulse Resp B/P (MAP) Pulse Ox O2 Delivery O2 Flow Rate FiO2 02/23/25 10:11 74 151/85 02/23/25 09:25 98.5 16 94 98.5 02/23/25 08:20 Room Air* 0 21 Intake/Output Intake and Output 02/23/25 07:00 Intake Total 1400 ml Balance 1400 ml Intake Oral 1400 ml # Voids 5 # Bowel Movements 1 General Appearance: Alert, Oriented X3 HEENT: Atraumatic Cardiovascular: Regular rate, Normal S1, Normal S2 Abdomen: Normal bowel sounds Medications Current Medications Medications Dose Ordered Sig/Molina Route Start Time Stop Time Status Last Admin Dose Admin Aspirin 81 mg DAILY PO 02/22/25 10:00 02/23/25 10:11 81 MG Atorvastatin Calcium 20 mg HS PO 02/21/25 22:00 02/22/25 21:02 20 MG Hydralazine HCl 10 mg Q6HP PRN IV 02/21/25 14:00 02/21/25 19:02 10 MG Metoprolol Tartrate 25 mg BID PO 02/21/25 22:00 02/23/25 10:11 25 MG Diagnostic Test (Pha) 1 strip ACHS 02/21/25 17:00 02/23/25 11:33 1 STRIP Insulin Human Regular ACHS SC 02/21/25 17:00 02/22/25 22:53 3 UNITS Dextrose 50 ml UD PRN IV 02/21/25 14:00 Sodium Chloride 10 ml Q8HR IV 02/21/25 14:00 02/23/25 06:00 10 ML Acetaminophen/ Hydrocodone Bitart 1 tab Q4HP PRN PO 02/21/25 14:00 Ondansetron HCl 4 mg Q4HP PRN IV 02/21/25 14:00 Docusate Sodium 100 mg BIDPRN PRN PO 02/21/25 14:00 Acetaminophen 650 mg Q6HP PRN PO 02/21/25 14:00 Nitroglycerin 0.4 mg Q5MINP PRN SL 02/21/25 14:45 Morphine Sulfate 2 mg Q30M PRN IV 02/21/25 14:45 Laboratory Results Laboratory Tests 02/22/25 06:44 Urinalysis Test 02/21/25 12:46 Urine Color Light-yellow (Yellow) Urine Clarity Clear (Clear) Urine pH 6.5 (5.0-9.0) Urine Specific [place] 1.030 (1.001-1.035) Urine Protein 1+ (Negative) H Urine Ketones Negative (Negative) Urine Blood Negative /uL (Negative) Urine Nitrite Negative (Negative) Urine Bilirubin Negative (Negative) Urine Urobilinogen Normal mg/dL (Negative) Urine Leukocyte Esterase Negative /uL (Negative) Urine RBC 4 /hpf (0 - 3) Urine Microscopic WBC < 1 /HPF (0-3) Urine Squamous Epithelial Cells Few /hpf (<5) Urine Bacteria None seen /hpf (None Seen) Urine Mucus Few (None Seen) Urine Yeast (Budding) Occasional /hpf (None Urine Glucose 1+ mg/dL (Normal) H CORINNE BARNES MD Feb 23, 2025 11:49
[2025-02-23] MEDS ORDERED: MET25T PO (12:42)
[2025-02-23] MEDS ORDERED: ASPI-325 PO (12:42)
--- NOTE | 2025-02-23 12:45 | DVHDS2 ---
Discharge Summary Date of Admission Feb 21, 2025 at 14:31 Date of Discharge: Feb 23, 2025 Labs/Diagnostic Data: Laboratory Results Test 02/23/25 11:27 02/22/25 06:44 02/21/25 14:30 02/21/25 12:46 POC Glucose 143 mg/dl (70-106) White Blood Count 4.6 10^3/uL (4.4-10.8) Red Blood Count 5.06 10^6/uL (4.5-5.90) Hemoglobin 13.3 g/dL (13.5-17.5) Hematocrit 39.4 % (41.0-53.0) Mean Corpuscular Volume 77.8 fL (80.0-100.0) Mean Corpuscular Hemoglobin 26.3 pg (28.0-32.0) Mean Corpuscular Hemoglobin Concent 33.7 g/dL (32.0-36.0) Red Cell Distribution Width 14.6 % (11.8-14.3) Platelet Count 267 10^3/uL (140-450) Mean Platelet Volume 6.5 fL (6.9-10.8) Neutrophils (%) (Auto) 63.4 % (37.0-80.0) Lymphocytes (%) (Auto) 23.9 % (10.0-50.0) Monocytes (%) (Auto) 9.0 % (0.0-12.0) Eosinophils (%) (Auto) 2.5 % (0.0-7.0) Basophils (%) (Auto) 1.2 % (0.0-2.0) Neutrophils # (Auto) 2.9 10 ^3/uL (1.6-8.6) Lymphocytes # (Auto) 1.1 10 ^3/uL (0.4-5.4) Monocytes # (Auto) 0.4 10 ^3/uL (0-1.3) Eosinophils # (Auto) 0.1 10 ^3/uL (0-0.8) Basophils # (Auto) 0.1 10 ^3/uL (0-0.2) Nucleated Red Blood Cells 0.0 % Sodium Level 144 mmol/L (136-145) Potassium Level 4.0 mmol/L (3.5-5.1) Chloride Level 107 mmol/L (98-107) Carbon Dioxide Level 27 mmol/L (20-31) Anion Gap 10 (5-15) Blood Urea Nitrogen 13 mg/dL (9-23) Creatinine 0.81 mg/dL (0.700-1.30) Glomerular Filtration Rate Calc 102 mL/min (>90) BUN/Creatinine Ratio 16.0 (10.0-20.0) Serum Glucose 117 mg/dL (74-106) Calcium Level 9.9 mg/dL (8.7-10.4) Total Bilirubin 0.9 mg/dL (0.2-1.0) Aspartate Amino Transferase (AST) 14 U/L (<34) Alanine Aminotransferase (ALT) 19 U/L (7-40) Alkaline Phosphatase 56 U/L (46-116) Total Protein 6.9 g/dL (5.7-8.2) Albumin 4.2 g/dL (3.2-4.8) Troponin I High Sensitivity 3 ng/L (</=54) Urine Color Light-yellow (Yellow) Urine Clarity Clear (Clear) Urine pH 6.5 (5.0-9.0) Urine Specific [place] 1.030 (1.001-1.035) Urine Protein 1+ (Negative) Urine Ketones Negative (Negative) Urine Blood Negative /uL (Negative) Urine Nitrite Negative (Negative) Urine Bilirubin Negative (Negative) Urine Urobilinogen Normal mg/dL (Negative) Urine Leukocyte Esterase Negative /uL (Negative) Urine RBC 4 /hpf (0 - 3) Urine Microscopic WBC < 1 /HPF (0-3) Urine Squamous Epithelial Cells Few /hpf (<5) Urine Bacteria None seen /hpf (None Seen) Urine Mucus Few (None Seen) Urine Yeast (Budding) Occasional /hpf (None Urine Glucose 1+ mg/dL (Normal) Test 02/21/25 11:21 Prothrombin Time 10.3 sec (9.3-11.8) Prothrombin Time INR 0.97 (0.9-1.15) Activated Partial Thromboplast Time 26.3 SEC (24.5-34.5) Magnesium Level 2.1 mg/dL (1.6-2.6) B-Type Natriuretic Peptide 85.55 pg/mL (0-100) Other Laboratory Tests 02/22/25 06:44 Final Diagnosis/Problems List TIA Discharge Disposition: Home Discharge Instruct/Medications Diet: Cardiac 2g Na,low cholest Activity: No Restrictions, As Tolerated Follow Up/Referral: pcp 1-2 weeks Medications: aspirin 81 qday Metoprolol 25mg PO bid Discharge Statement: "Patient was advised to return to the ER or call 911 if any headaches, dizziness, shortness of breath, chest pain, abdominal pain, bleeding, fevers, or worsening of medical condition. Patient was counseled about treatment plan, medications, possible side effects, patientverbalized understanding. All questions were answered to the best of my ability. This discharge took greater then 30 minutes in planning, reviewing documentation, counseling the patient, and discussing with other team members." ASSESSMENT ASSESSMENT Assessment TIA CORINNE BARNES MD Feb 23, 2025 12:45
[2025-02-23 13:08] VITALS: BP 137/82; PULSE 73; RESP 18; TEMP 98.1; O2SAT 96
[2025-02-23 15:46] VITALS: BP 137/82; PULSE 73; RESP 18; TEMP 36.7; O2SAT 96
== END 2025-02-23 16:20 | disposition home or self-care (01) | DRG 69 ==
LOC: ER 11:01 → OVERFLOW 14:31 → TELE-WESTW 18:56
PROVIDERS: ADMIT Internal Medicine; ATTEND Internal Medicine
DX: G45.9 Transient cerebral ischemic attack, unspecified (principal); I10 Essential (primary) hypertension; E78.5 Hyperlipidemia, unspecified; E11.9 Type 2 diabetes mellitus without complications; Z79.899 Other long term (current) drug therapy; Z79.82 Long term (current) use of aspirin
CPT/HCPCS: 36415; 70450; 70496; 70498; 70551; 71045; 80053; 81001; 82962; 83735; 83880; 84484; 85025; 85610; 85730; 96374; G0378; J1815